=== PATIENT | male | born 1965 ===

== ENCOUNTER 2017-03-11 12:30 | Inpatient (IN) | payer BC ==
[~2017-03-11] VITALS: Ht 175.3 cm; Wt 59.8 kg
--- NOTE | ~2017-03-11 | DS ---
PATIENT'S NAME: NOEMI LOMBARDI [facility] AGE: 51 Y [address] ROOM: [address] [place], [place] [address] LOCATION: GPCU ADMIT DATE: 03/11/2017 Discharge Summary DISCHARGE DATE: 03/21/2017 FAMILY PHYSICIAN: Meena Durant MD ATTENDING PH[facility]IC[facility]: The patient is a 51-year-old white male, who had been admitted to the [facility] with septic pneumonia. During the course of his hospital workup, he had been found to have a bump in his troponin. He was therefore taken to the cardiac catheterization lab in [place] with concerns of a possible non-STEMI. Unfortunately, he suffered a perforation to the LAD during the percutaneous intervention and a resultant cardiac tamponade with profuse bleeding ensued. The patient was emergently given blood and plasma as well as intubated. He underwent an emergent pericardiocentesis yielding 1300 mL of bloody fluid and was emergently flown to [facility], where he was taken immediately to the OR with Dr. Cornell. The patient underwent an emergent mediastinotomy with hemostasis of the LAD. He tolerated the surgery well. He transferred to the ICU following the procedure in an intubated state. He remained on a nitroglycerin drip for hypertension. He did receive additional blood transfusion for acute blood loss anemia. When attempting to extubate the patient, he awoke with severe and unusual agitation and underwent respiratory distress. It was then found out that the patient had been using Suboxone for the last 8 years for a narcotic withdrawal. The patient's family was asked to please bring the medication to the hospital for continued use. In the interim, the patient was re-intubated. A fentanyl patch was placed to help with the agitation and the patient stabilized thereafter. Once the Suboxone was received, we started the dosing and the fentanyl was discontinued. The patient remained stable and therefore on postoperative day 5, we resumed extubation without complication. We were able to wean the nitroglycerin for the hypertensive state. Speech Therapy evaluated the patient given his prolonged intubation status and we were able to proceed with normal feeding and medications. The patient was evaluated by PT/OT and did work with therapies following the surgical procedure. He is fairly deconditioned. He was given a nicotine patch for tobacco withdrawal. He tolerated this well. He was then transferred to the progressive care floor. His chest tubes and Vega catheter were removed in the appropriate timeframe. He had no healing complications. He had no problems with arrhythmias or AFib following the procedure. Care Management worked with the patient and his to ascertain their needs upon discharge. The patient felt that he could discharge to home without any further care and therefore on 03/21/2017, the patient was discharged to home. DISCHARGE ORDERS: Include a diet with no restrictions. Activity levels that include no pulling, pushing, or lifting anything heavier than 10 pounds until April 22, 2017. The patient may shower. He is to work with outpatient rehab PATIENT'S NAME: NOEMI LOMBARDI [facility] AGE: 51 Y [address] ROOM: [id number] [place], [place] [address] LOCATION: GPCU ADMIT DATE: 03/11/2017 Discharge Summary DISCHARGE DATE: 03/21/2017 FAMILY PHYSICIAN: Meena Durant MD ATTENDING PHYSICIAN: Walker Cornell and they have been asked to treat and evaluate for deconditioning secondary to surgery and this will take place in [place]. FINAL DIAGNOSES: 1. Cardiac tamponade secondary to perforated LAD. 2. Septic pneumonia. 3. Chronic kidney disease. 4. Chronic obstructive pulmonary disease. 5. Tobaccoism. 6. Chronic neuropathy. 7. Depression. 8. History of substance abuse. 9. History of hepatitis C. 10. Deconditioning secondary to surgery. DISCHARGE MEDICATIONS: Include: 1. Zofran 4 mg q.6 hours p.r.n. 2. Prozac 40 mg daily. 3. Suboxone 8 mg sublingual 3 times a day with meals. 4. Lopressor 50 mg twice a day. 5. Omeprazole 40 mg daily. 6. Neurontin 400 mg 4 times a day. 7. Tylenol 650 mg p.r.n. 8. Cranberry tablet 250 mg daily. 9. Multivitamin 1 tablet daily. 10. Vitamin C 1000 mg daily p.r.n. cold symptoms. 11. Citracal with vitamin D 1 tablet daily. 12. Norvasc 5 mg daily. 13. Lipitor 20 mg at h.s. 14. Colace 100 mg twice a day. 15. Nicotine patch Transdermal 21 mg. 16. Albuterol 2 puffs per inhalation q.6 hours. 17. [place] 5/325 one tablet q.6 hours p.r.n. pain. The patient will follow up with Dr. Mcgee in 2 weeks with a chest x-ray, PA and lateral, and Dr. Durant in [place] in 1 week. The patient was discharged to home in stable condition. LEN HUNG APRN FOR NOEMI MCGEE, DO DLQ/modl PATIENT'S NAME: NOEMI LOMBARDI [facility] AGE: 51 Y [address] ROOM: [place] [address] [facility] AD[facility] DATE: 03/11/2017 Discharge Summary DISCHARGE DATE: 03/21/2017 FAMILY PHYSICIAN: Meena Durant MD ATTENDING PHYSICIAN: Walker Cornell /[id number] d: 04/06/17 1029 t: 04/19/17 0313, DISCHARGE SUMMARY
--- NOTE | ~2017-03-11 | HP ---
PATIENT'S NAME: HARJIT [facility] AGE: 51 Y [address] ROOM: [place] [id number] LOCATION: [facility] ADMIT DATE: 03/11/2017 History & Physical DISCHARGE DATE: FAMILY PHYSICIAN: Meena Durant MD ATTENDING PHYSICIAN: Walker Cornell DATE OF SERVICE: CHIEF COMPLAINT: The patient is being flown from [facility] in [place] with cardiac tamponade status post perforated LAD during PCI. HISTORY OF PRESENT ILLNESS: The patient is a 51-year-old male, who was admitted to [facility] in [place] with sepsis and pneumonia. He has chronic kidney disease. He was found to have an elevation in his troponin and was catheterized for possible N- STEMI. PCI of the LAD was performed with perforation of the LAD and cardiac tamponade due to profuse bleeding. The patient had been given Angiomax. That was immediately stopped and he was given blood and plasma. A pigtail catheter was placed into his pericardium and a large pericardiocentesis of about 1300 mL was obtained with improvement in his vital signs, and severe hypotension. He was flown here emergently and transferred straight to the operating room. See operative note for details. PAST MEDICAL HISTORY: This is obtained from records from [place]: 1. History of hepatitis C. 2. 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 3. Chronic kidney disease. 4. COPD. 5. Tobacco dependence. 6. Chronic neuropathy. 7. Depression. PAST SURGICAL HISTORY: 1. Sural nerve biopsy. 2. Knee arthroscopy. ALLERGIES: NO KNOWN DRUG ALLERGIES. HOME MEDICATIONS: Prior to admission to [place]: 1. Omeprazole. 2. Fluoxetine. PATIENT'S NAME: HARJIT [facility] AGE: 51 Y [address] ROOM: [address] [address] LOCATION: [facility] ADMIT DATE: 03/11/2017 History & Physical DISCHARGE DATE: FAMILY PHYSICIAN: Meena Durant MD ATTENDING PHYSICIAN: Walker Cornell 3. Lyrica. 4. Albuterol MDI. 5. Bystolic. SOCIAL HISTORY: Pack-a-day smoker. Denied alcohol intake or illicit drug abuse. FAMILY HISTORY: Noncontributory. PHYSICAL EXAMINATION: Brief physical exam in the operating room, revealed an intubated, sedated patient. Breath sounds were equal bilaterally. There was a pigtail catheter in the epicardium connected to a suction bottle with 200 mL of serosanguineous fluid within it. The patient's vital signs were within normal limits. He appeared quite pale. DIAGNOSTIC DATA: Catheterization was reviewed that had been sent from [place]. IMPRESSION: Cardiac tamponade secondary to ruptured left anterior descending status post above interventions. PLAN: Emergency sternotomy with hemostasis of the LAD. MD WARREN HERNANDEZ/sanjay /[id number] D: [id number] T: [id number] HISTORY & PHYSICAL
--- NOTE | ~2017-03-11 | OR ---
PATIENT'S NAME: NOEMI LOMBARDI [facility] AGE: 51 Y [address] ROOM: [address] [address] LOCATION: GICU ADMIT DATE: 03/11/2017 OR/Procedure Report DISCHARGE DATE: FAMILY PHYSICIAN: PHYSICIAN, UNKNOWN ATTENDING PHYSICIAN: Walker Cornell SURGEON: Walker Cornell MD CONCRETE FENCE BUILDER: NOE Coronel. DATE OF PROCEDURE: 03/11/2017 PREOPERATIVE DIAGNOSES: Status post PCI, perforated LAD, pericardial tamponade. POSTOPERATIVE DIAGNOSES: Status post PCI, perforated LAD, pericardial tamponade. PROCEDURE: Emergency median sternotomy with hemostasis of LAD. ANESTHESIA: General endotracheal. FINDINGS: There was a large clotted hemopericardium which was evacuated easily. There was rupture of the epicardium over the mid LAD with lot of blood staining and hematoma within the myocardium and epicardium. The LAD was searched for briefly but was obviously deeply intra myocardial in that area and was not actively bleeding. The distal LAD was a very small vessel and was not an adequate target for bypass. There appeared to be no evidence of acute myocardial infarction in the distal LAD territory. Wall motion appeared to be present. PROCEDURE: The patient was brought from the [facility] to the operating room, where he was urgently prepped and draped. He appeared to be hemodynamically relatively stable at that time. A right femoral arterial line and a left femoral venous catheter were present and left in situ. The patient already had a triple lumen central line in the right IJ and an external jugular in the left neck. The patient was washed, prepped and draped. A median sternotomy was performed in standard fashion. The sternum was split, the edges were pulled and a sternal retractor placed. The pericardium was opened in the midline and pericardial cradle was were created bilaterally. There was a large clotted hemopericardium which was evacuated at this point. The heart was then placed on top of a lap pad to bring the LAD into the field with findings as noted above. I briefly opened of the epicardial area that had ruptured and looked into the base of it and saw a deep myocardial wound with no active bleeding. There was some venous bleeding which was clipped, were gently cauterized. A small aliquot of Floseal was placed into this defect and the epicardium was closed with interrupted 5-0 [id number] Prolene sutures x2. The distal coronary vessels appeared soft and noncalcified. The lap pads PATIENT'S NAME: NOEMI LOMBARDI [facility] AGE: 51 Y [address] ROOM: [address] [address] LOCATION: [facility] ADMIT DATE: 03/11/2017 OR/Procedure Report DISCHARGE DATE: FAMILY PHYSICIAN: PHYSICIAN, UNKNOWN ATTENDING PHYSICIAN: Walker Cornell were removed and the heart was replaced into the pericardium in normal anatomical position. A single 32-Frisian chest tube was placed into the anterior mediastinum and secured to the skin with a silk stitch. The sternal retractor was then removed along with the pericardial retraction sutures. Bleeding points on the edge of the sternum were cauterized in the marrow left alone. The sternum was closed with zip ties and the subcutaneous tissues were irrigated with bacitracin solution. Remainder of the chest wall was closed in layers in standard fashion with subcuticular suture for the skin. The patient remained hemodynamically stable during the procedure including tolerating lifting the heart on the lap pads out of the pericardial wall. He was transferred to the ICU. Coagulopathy was present but moderate to mild, there was severe acidosis which was partially corrected during the case with sodium bicarbonate. MD WARREN HERNANDEZ/sanjay /[id number] d: 03/11/[id number] t: 03/12/17 1023, OPERATIVE SUMMARY
[2017-03-11 14:50] LABS: HEMATOCRIT 27.3 % (37.0-53.0); HEMOGLOBIN 9.1 g/dL (12.0-17.0); MCHC 33.3 gm/dL (32.0-36.5); MCV 92.9 fl (83.0-98.0); MPV 10.2 fl (9.4-12.4); RBC 2.94 M/uL (4.00-6.00); RDW-CV 16.4 % (11.9-14.6)
[2017-03-11 14:59] LABS: INR - (THERAPEUTIC) 1.14 (0.92-1.07)
[2017-03-11 15:03] LABS: WBC 13.4 K/uL (4.0-11.0)
[2017-03-11 15:19] LABS: ALPHA ANGLE 76 degrees; ALPHA ANGLE 76 degrees (70-81); CLOT FORMATION TIME 66 seconds; CLOTTING TIME 110 seconds (43-82); CLOTTING TIME 234 seconds; MAXIMUM CLOT FIRMNESS 63 mm; MAXIMUM CLOT FIRMNESS 66 mm (51-72); MAXIMUM LYSIS 0 %
[2017-03-11 15:59] LABS: PCO2 47 mmHg (35-45); PO2 98 mmHg (80-90)
[2017-03-11 16:00] LABS: POTASSIUM 3.9 mEq/L (3.7-5.1); SODIUM 147 mEq/L (135-145)
[2017-03-11 16:25] LABS: ANION GAP 12.4 (10.0-19.0); CALCIUM 6.6 mg/dL (8.5-10.5); CREATININE 1.8 mg/dL (0.6-1.3); POTASSIUM 4.4 mMol/L (3.7-5.1)
[2017-03-11 16:34] LABS: BICARBONATE 16.5 mmol/L (18.0-23.0); PCO2 56 mmHg (35-45); PO2 170 mmHg (80-90)
[2017-03-11 16:35] LABS: POTASSIUM 3.9 mEq/L (3.7-5.1); SODIUM 147 mEq/L (135-145)
[2017-03-11 16:36] LABS: PCO2 50 mmHg (35-45); PO2 56 mmHg (80-90)
[2017-03-11 16:37] LABS: BICARBONATE 18.2 mmol/L (18.0-23.0)
[2017-03-11 16:38] LABS: SODIUM 145 mEq/L (135-145)
[2017-03-11] MEDS ORDERED: ZOFRAN4 MG PO (18:08)
[2017-03-11] MEDS ORDERED: PROZAC20 MG PO (18:08)
[2017-03-11] MEDS ORDERED: LOPRESSOR50 MG PO (18:12)
[2017-03-11] MEDS ORDERED: BUPRENORPHINE HC8 MG SL (18:12)
[2017-03-11] MEDS ORDERED: NEURONTIN400 MG PO (18:13)
[2017-03-11] MEDS ORDERED: OMEPRAZOLE40 MG PO (18:13)
[2017-03-11] MEDS ORDERED: THERA-VITE W/ B1 TAB PO (18:14)
[2017-03-11] MEDS ORDERED: TYLENOL325 MG PO (18:14)
[2017-03-11] MEDS ORDERED: CRANBERRY250 MG PO (18:14)
[2017-03-11] MEDS ORDERED: EMERGEN-C 1,01000 MG PO (18:15)
[2017-03-11] MEDS ORDERED: CITRACAL+D(315M1 TAB PO (18:15)
[2017-03-11 19:22] LABS: PCO2 43 mmHg (35-45)
[2017-03-11 19:24] LABS: BICARBONATE 24.3 mmol/L (18.0-23.0); PO2 75 mmHg (80-90)
[2017-03-12 04:14] LABS: BICARBONATE 26.6 mmol/L (18.0-23.0); PCO2 41 mmHg (35-45); PO2 72 mmHg (80-90)
[2017-03-12 04:25] LABS: MCV 88.7 fl (83.0-98.0); MPV 9.9 fl (9.4-12.4); RBC 2.39 M/uL (4.00-6.00); RDW-CV 17.4 % (11.9-14.6); WBC 10.6 K/uL (4.0-11.0)
[2017-03-12 04:30] LABS: ANION GAP 11.7 (10.0-19.0); CALCIUM 7.8 mg/dL (8.5-10.5); CREATININE 2.1 mg/dL (0.6-1.3); POTASSIUM 3.7 mMol/L (3.7-5.1)
[2017-03-12 04:31] LABS: HEMATOCRIT 21.2 % (37.0-53.0); HEMOGLOBIN 7.4 g/dL (12.0-17.0); MCHC 34.9 gm/dL (32.0-36.5)
[2017-03-13 04:21] LABS: HEMATOCRIT 18.9 % (37.0-53.0); MCH 30.7 pg (27.0-34.0); MCHC 34.4 gm/dL (32.0-36.5); MCV 89.2 fl (83.0-98.0); MPV 10.3 fl (9.4-12.4); RBC 2.12 M/uL (4.00-6.00); RDW-CV 16.6 % (11.9-14.6); WBC 10.7 K/uL (4.0-11.0)
[2017-03-13 04:26] LABS: HEMOGLOBIN 6.5 g/dL (12.0-17.0)
[2017-03-13 04:27] LABS: ANION GAP 11.1 (10.0-19.0); CALCIUM 7.7 mg/dL (8.5-10.5); CREATININE 2.4 mg/dL (0.6-1.3); POTASSIUM 3.1 mMol/L (3.7-5.1)
[2017-03-14 04:42] LABS: MPV 9.2 fl (9.4-12.4); WBC 9.7 K/uL (4.0-11.0)
[2017-03-14 04:55] LABS: ANION GAP 11.3 (10.0-19.0); CALCIUM 7.6 mg/dL (8.5-10.5); CREATININE 2.4 mg/dL (0.6-1.3); POTASSIUM 3.3 mMol/L (3.7-5.1)
[2017-03-14 04:57] LABS: HEMATOCRIT 24.3 % (37.0-53.0); MCHC 32.9 gm/dL (32.0-36.5); RBC 2.86 M/uL (4.00-6.00)
[2017-03-14 09:13] LABS: BICARBONATE 31.2 mmol/L (18.0-23.0); PCO2 41 mmHg (35-45); PO2 78 mmHg (80-90)
[2017-03-14 15:35] LABS: ALBUMIN 2.8 gm/dL (3.5-5.0); ANION GAP 12.6 (10.0-19.0); CALCIUM 7.9 mg/dL (8.5-10.5); CREATININE 2.3 mg/dL (0.6-1.3); PHOSPHORUS 4.3 mg/dL (2.5-4.9); POTASSIUM 3.6 mMol/L (3.7-5.1)
[2017-03-15 04:38] LABS: ALBUMIN 3.1 gm/dL (3.5-5.0); ALK PHOS 44 IU/L (33-138); ANION GAP 10.4 (10.0-19.0); AST 18 IU/L (10-40); BLOOD UREA NITROGEN 20 mg/dL (6-24); CHLORIDE 105 mMol/L (96-110); CO2 30 mMol/L (22-32); CREATININE 2.3 mg/dL (0.6-1.3); ESTIMATED GFR (MDRD EQUATION) 30; POTASSIUM 3.4 mMol/L (3.7-5.1); SODIUM 142 mMol/L (135-145); TOTAL BILIRUBIN 0.6 mg/dL (0.0-1.5); TOTAL PROTEIN 6.4 g/dL (6.0-8.4)
[2017-03-15 04:42] LABS: ALT < 10 IU/L (12-78)
[2017-03-15 05:00] LABS: BASOPHIL % 0.6 %; EOSINOPHIL # 0.9 K/uL (0.0-0.5); EOSINOPHIL % 13.1 %; HEMATOCRIT 26.9 % (37.0-53.0); HEMOGLOBIN 8.9 g/dL (12.0-17.0); IMMATURE GRANULOCYTE # 0.3 K/uL (0.0-0.3); IMMATURE GRANULOCYTE % 4.8 %; LYMPHOCYTE # 1.2 K/uL (0.8-4.0); LYMPHOCYTE % 17.1 %; MCH 28.8 pg (27.0-34.0); MCHC 33.1 gm/dL (32.0-36.5); MCV 87.1 fl (83.0-98.0); MONOCYTE # 0.9 K/uL (0.0-1.0); MONOCYTE % 12.9 %; MPV 9.7 fl (9.4-12.4); NEUTROPHIL # (ANC) 3.6 K/uL (1.4-9.0); NEUTROPHIL % 51.5 %; NRBC % 0 /100WBC (0-0.00); PLATELET COUNT 208 K/uL (150-450); RBC 3.09 M/uL (4.00-6.00); RDW-CV 19.2 % (11.9-14.6); WBC 6.9 K/uL (4.0-11.0)
[2017-03-16 03:47] LABS: ALBUMIN 3.9 gm/dL (3.5-5.0); ANION GAP 10.6 (10.0-19.0); CALCIUM 8.6 mg/dL (8.5-10.5); CREATININE 2.4 mg/dL (0.6-1.3); PHOSPHORUS 4.3 mg/dL (2.5-4.9); POTASSIUM 3.6 mMol/L (3.7-5.1)
[2017-03-16 04:03] LABS: HEMATOCRIT 28.5 % (37.0-53.0); HEMOGLOBIN 9.3 g/dL (12.0-17.0); MCH 29.2 pg (27.0-34.0); MCHC 32.6 gm/dL (32.0-36.5); MCV 89.3 fl (83.0-98.0); MPV 9.8 fl (9.4-12.4); RBC 3.19 M/uL (4.00-6.00); RDW-CV 18.3 % (11.9-14.6); WBC 7.4 K/uL (4.0-11.0)
[2017-03-17 05:17] LABS: ANION GAP 11.5 (10.0-19.0); CALCIUM 9.2 mg/dL (8.5-10.5); CREATININE 2.4 mg/dL (0.6-1.3); POTASSIUM 3.5 mMol/L (3.7-5.1)
[2017-03-17 05:20] LABS: HEMATOCRIT 30.4 % (37.0-53.0); HEMOGLOBIN 9.9 g/dL (12.0-17.0); MCH 29.1 pg (27.0-34.0); MCHC 32.6 gm/dL (32.0-36.5); MCV 89.4 fl (83.0-98.0); MPV 9.7 fl (9.4-12.4); RBC 3.4 M/uL (4.00-6.00); RDW-CV 17.4 % (11.9-14.6); WBC 10.3 K/uL (4.0-11.0)
[2017-03-18 05:14] LABS: HEMATOCRIT 32.8 % (37.0-53.0); HEMOGLOBIN 10.8 g/dL (12.0-17.0); MCH 29.8 pg (27.0-34.0); MCHC 32.9 gm/dL (32.0-36.5); MCV 90.4 fl (83.0-98.0); MPV 9.6 fl (9.4-12.4); RBC 3.63 M/uL (4.00-6.00); RDW-CV 17.3 % (11.9-14.6); WBC 9.6 K/uL (4.0-11.0)
[2017-03-18 05:23] LABS: ANION GAP 13.1 (10.0-19.0); CREATININE 2.4 mg/dL (0.6-1.3); POTASSIUM 4.1 mMol/L (3.7-5.1)
[2017-03-19 04:15] LABS: BASOPHIL # 0.1 K/uL (0.0-0.2); BASOPHIL % 0.5 %; EOSINOPHIL # 0.6 K/uL (0.0-0.5); HEMATOCRIT 31.8 % (37.0-53.0); HEMOGLOBIN 10.1 g/dL (12.0-17.0); IMMATURE GRANULOCYTE # 0.1 K/uL (0.0-0.3); IMMATURE GRANULOCYTE % 1.2 %; LYMPHOCYTE # 1.7 K/uL (0.8-4.0); LYMPHOCYTE % 17.1 %; MCH 28.9 pg (27.0-34.0); MCHC 31.8 gm/dL (32.0-36.5); MCV 91.1 fl (83.0-98.0); MONOCYTE # 0.9 K/uL (0.0-1.0); MONOCYTE % 9.3 %; MPV 9.3 fl (9.4-12.4); NEUTROPHIL # (ANC) 6.5 K/uL (1.4-9.0); NEUTROPHIL % 65.9 %; NRBC % 0 /100WBC (0-0.00); PLATELET COUNT 245 K/uL (150-450); RBC 3.49 M/uL (4.00-6.00); RDW-CV 17.3 % (11.9-14.6); WBC 9.8 K/uL (4.0-11.0)
[2017-03-19 04:29] LABS: ALBUMIN 3.9 gm/dL (3.5-5.0); ANION GAP 14.1 (10.0-19.0); CALCIUM 8.9 mg/dL (8.5-10.5); CREATININE 2.4 mg/dL (0.6-1.3); PHOSPHORUS 4.2 mg/dL (2.5-4.9); POTASSIUM 4.1 mMol/L (3.7-5.1)
[2017-03-20 03:53] LABS: ALBUMIN 3.9 gm/dL (3.5-5.0); ANION GAP 13.2 (10.0-19.0); CREATININE 2.5 mg/dL (0.6-1.3); PHOSPHORUS 5.1 mg/dL (2.5-4.9); POTASSIUM 4.2 mMol/L (3.7-5.1)
[2017-03-21 04:06] LABS: ALBUMIN 3.6 gm/dL (3.5-5.0); ANION GAP 11.4 (10.0-19.0); CALCIUM 8.8 mg/dL (8.5-10.5); CREATININE 2.3 mg/dL (0.6-1.3); PHOSPHORUS 4.4 mg/dL (2.5-4.9); POTASSIUM 4.4 mMol/L (3.7-5.1)
[2017-03-21] MEDS ORDERED: NORVASC5 MG PO (10:55)
[2017-03-21] MEDS ORDERED: LIPITOR20 M1 PO (10:56)
[2017-03-21] MEDS ORDERED: COLACE100 MG PO ×2 (10:58→10:59)
[2017-03-21] MEDS ORDERED: NICOTINE PATCH1 EAC1 TRANS (11:07)
[2017-03-21] MEDS ORDERED: PROVENTIL OR V6.7 GM INH (11:09)
[2017-03-21] MEDS ORDERED: NORCO 5-325 TA1 EACH PO (11:13)
== END 2017-03-21 12:25 | disposition disaster alternative care site (69) | DRG 907 ==
LOC: GICU 13:42 → GNTU 13:42 → GICU 14:06 → GPCU 03-18 20:56
PROVIDERS: Thoracic Surgery (Cardiothoracic Vascular Surgery); ADMIT Thoracic Surgery (Cardiothoracic Vascular Surgery)
PROC: 0W9C00Z Drainage of Mediastinum with Drainage Device, Open Approach (ICD-10-PCS; principal; 2017-03-11)
PROC: 0W3D0ZZ Control Bleeding in Pericardial Cavity, Open Approach (ICD-10-PCS; principal; 2017-03-11)
PROC: 30233H0 Transfusion of Autologous Whole Blood into Peripheral Vein, Percutaneous Approach (ICD-10-PCS; principal; 2017-03-11)
PROC: 0BH17EZ Insertion of Endotracheal Airway into Trachea, Via Natural or Artificial Opening (ICD-10-PCS; 2017-03-12)
PROC: 5A09457 Assistance with Respiratory Ventilation, 24-96 Consecutive Hours, Continuous Positive Airway Pressure (ICD-10-PCS; 2017-03-12)
PROC: F00ZJWZ Instrumental Swallowing and Oral Function Assessment using Swallowing Equipment (ICD-10-PCS; 2017-03-16)
DX: I97.51 Accidental puncture and laceration of a circulatory system organ or structure during a circulatory system procedure (principal); A41.9 Sepsis, unspecified organism; J96.00 Acute respiratory failure, unspecified whether with hypoxia or hypercapnia; I31.4 Cardiac tamponade; J18.9 Pneumonia, unspecified organism; D62 Acute posthemorrhagic anemia; I95.9 Hypotension, unspecified; F32.9 Major depressive disorder, single episode, unspecified; J44.9 Chronic obstructive pulmonary disease, unspecified; N18.9 Chronic kidney disease, unspecified; Z86.19 Personal history of other infectious and parasitic diseases; Z95.1 Presence of aortocoronary bypass graft; F17.210 Nicotine dependence, cigarettes, uncomplicated; G62.89 Other specified polyneuropathies; R45.1 Restlessness and agitation
CPT/HCPCS: J0330; J0360; J0690; J1630; J1940; J2060; J2175; J2250; J2270; J2543; J2704; J3480; J7030; J7040; J7050; J7060; J7121; P9016; P9017; P9047

== ENCOUNTER → 2017-04-05 | Outpatient (CLI) | payer BC ==
[~2017-04-05] MED LIST: BUPRENORPHINE HC8 MG SL; CITRACAL+D(315M1 TAB PO; COLACE100 MG PO; CRANBERRY250 MG PO; EMERGEN-C 1,01000 MG PO; LIPITOR20 M1 PO; LOPRESSOR50 MG PO; NEURONTIN400 MG PO; NICOTINE PATCH1 EAC1 TRANS; NORCO 5-325 TA1 EACH PO; NORVASC5 MG PO; OMEPRAZOLE40 MG PO; PROVENTIL OR V6.7 GM INH; PROZAC20 MG PO; THERA-VITE W/ B1 TAB PO; TYLENOL325 MG PO; ZOFRAN4 MG PO
[2017-04-05 12:39] LABS: BASOPHIL # 0.1 K/uL (0.0-0.2); EOSINOPHIL # 0.9 K/uL (0.0-0.5); EOSINOPHIL % 11.9 %; HEMATOCRIT 31.5 % (37.0-53.0); HEMOGLOBIN 9.9 g/dL (12.0-17.0); IMMATURE GRANULOCYTE % 0.4 %; LYMPHOCYTE # 1.2 K/uL (0.8-4.0); MCH 29.6 pg (27.0-34.0); MCHC 31.4 gm/dL (32.0-36.5); MONOCYTE # 0.7 K/uL (0.0-1.0); MONOCYTE % 9.3 %; MPV 10.2 fl (9.4-12.4); NEUTROPHIL # (ANC) 4.9 K/uL (1.4-9.0); NEUTROPHIL % 62.4 %; NRBC % 0 /100WBC (0-0.00); PLATELET COUNT 249 K/uL (150-450); RBC 3.35 M/uL (4.00-6.00); RDW-CV 17.2 % (11.9-14.6); WBC 7.9 K/uL (4.0-11.0)
[2017-04-05 12:54] LABS: ANION GAP 13.4 (10.0-19.0); CALCIUM 8.8 mg/dL (8.5-10.5); CREATININE 3.3 mg/dL (0.6-1.3); POTASSIUM 5.4 mMol/L (3.7-5.1); TOTAL BILIRUBIN 0.7 mg/dL (0.0-1.5); TOTAL PROTEIN 7.6 g/dL (6.0-8.4)
== END | disposition disaster alternative care site (69) ==
LOC: LNHI 12:32
PROVIDERS: Thoracic Surgery (Cardiothoracic Vascular Surgery)
DX: N18.9 Chronic kidney disease, unspecified (principal); J16.8 Pneumonia due to other specified infectious organisms